=== PATIENT | male | born 1995 | race African-American/Black ===

== ENCOUNTER 2019-03-25 17:17 | Emergency (ER) | payer MEDICAID ==
[~2019-03-25] VITALS: Ht 188 cm; Wt 117.9 kg
[2019-03-25 17:43] VITALS: BP 133/78
[2019-03-25] MEDS ORDERED: cefTRIAXone SOD 1,000 MG VL IM ONE (18:00)
[2019-03-25] MEDS ORDERED: methylPREDNISolone SOD SUCC 125 MG/2 ML VL IM ONE (18:00)
== END 2019-03-25 18:20 | disposition home or self-care (01) ==
LOC: ER 17:20
DX: J03.90 Acute tonsillitis, unspecified (principal)
CPT/HCPCS: 96372; 99283; J0696; J2930

== ENCOUNTER 2019-07-04 15:55 | Emergency (ER) | payer MEDICAID ==
[~2019-07-04] VITALS: Ht 188 cm; Wt 117.9 kg
[2019-07-04 16:23] VITALS: BP 143/89
[2019-07-04] MEDS ORDERED: cefTRIAXone SOD 1,000 MG VL ONE (18:07)
[2019-07-04] MEDS ORDERED: LIDOCAINE 2% (LOCAL ANESTH.) PF 5ml SDV ONE (18:07)
[2019-07-04] MEDS ORDERED: cefTRIAXone SOD 1,000 MG VL IM ONE (18:15)
[2019-07-04] MEDS ORDERED: cefTRIAXone 1GM/50ML D5W 50 ML IV ONE (18:15)
== END 2019-07-04 18:16 | disposition home or self-care (01) ==
LOC: ER 16:03
DX: J02.9 Acute pharyngitis, unspecified (principal); F12.10 Cannabis abuse, uncomplicated
CPT/HCPCS: 96372; 99283; J0696; J2001

== ENCOUNTER 2021-12-22 11:31 | Emergency (ER) | payer MEDICAID ==
[~2021-12-22] VITALS: Ht 188 cm; Wt 136.1 kg
[2021-12-22 14:45] VITALS: BP 139/77
[2021-12-22] MEDS ORDERED: KETOROLAC TROMETH 60MG/2ML VIAL IM ONE (14:45)
== END 2021-12-22 15:51 | disposition home or self-care (01) ==
LOC: ER 11:31
DX: S83.91XA Sprain of unspecified site of right knee, initial encounter (principal); F12.10 Cannabis abuse, uncomplicated; W01.0XXA Fall on same level from slipping, tripping and stumbling without subsequent striking against object, initial encounter; Y93.A1 Activity, exercise machines primarily for cardiorespiratory conditioning; Y92.89 Other specified places as the place of occurrence of the external cause; Y99.8 Other external cause status
CPT/HCPCS: 29505; 73562; 96372; 99283; J1885

== ENCOUNTER 2022-05-22 00:38 | Emergency (ER) | payer MEDICAID ==
[~2022-05-22] VITALS: Ht 185.4 cm; Wt 131.8 kg
[2022-05-22 03:55] LABS: Urine Bacteria NONE SEEN /hpf (None Seen); Urine Blood 1+ /uL (Negative); Urine Hyaline Cast FEW /lpf (0 - 2); Urine Mucus FEW (None Seen); Urine Specific Gravity 1.038 (1.001-1.035); Urine WBC 12 /hpf (0 - 3)
[2022-05-22 03:57] VITALS: BP 137/75
[2022-05-22 04:48] LABS: Basophils # (auto) 0.1 10 ^3/uL (0-0.2); Basophils % (auto) 0.7 % (0.0-2.0); Eosinophils # (auto) 0.2 10 ^3/uL (0-0.8); Eosinophils % (auto) 1.8 % (0.0-7.0); Hematocrit 38.2 % (41.0-53.0); Hemoglobin 12.6 g/dL (13.5-17.5); Lymphocytes % (auto) 20.3 % (10.0-50.0); Mean Corpuscular Hemoglobin 25.4 pg (28.0-32.0); Mean Corpuscular Hgb Conc. 32.9 g/dL (32.0-36.0); Mean Corpuscular Volume 77.2 fL (80.0-100.0); Monocytes # (auto) 0.8 10 ^3/uL (0-1.3); Monocytes % (auto) 7.8 % (0.0-12.0); Neutrophils # (auto) 6.7 10 ^3/uL (1.6-8.6); Neutrophils % (auto) 69.4 % (37.0-80.0); Nucleated Red Blood Cells % 0.2 %; Red Blood Cells 4.95 10^6/uL (4.5-5.90); Red Cell Distribution Width 14.3 % (11.8-14.3); White Blood Cell 9.7 10^3/uL (4.4-10.8)
[2022-05-22 05:00] LABS: Albumin 3.8 g/dL (3.4-5.0); BUN/Creatinine Ratio 8.3; Calcium 8.6 mg/dL (8.5-10.1); Potassium 3.5 mmol/L (3.5-5.1)
[2022-05-22 05:03] LABS: Bilirubin, Total 0.3 mg/dL (0.2-1.0); Total Protein 7.6 g/dL (6.4-8.2)
[2022-05-22] MEDS ORDERED: CIPR-173 PO (07:48)
[2022-05-22] MEDS ORDERED: TAM04C PO (07:48)
== END 2022-05-22 07:49 | disposition left against medical advice (07) ==
LOC: ER 00:38
DX: N39.0 Urinary tract infection, site not specified (principal); N20.9 Urinary calculus, unspecified
CPT/HCPCS: 36415; 74176; 80053; 81001; 85025